=== PATIENT | male | born 1960 | race Caucasian/White ===

== ENCOUNTER 2024-05-21 17:07 | Emergency (ER) | payer BC, SELFPAY ==
[2024-05-21 17:11] VITALS: BP 181/83
--- NOTE | 2024-05-21 23:06 | ED.GENMED ---
History of Present Illness
General
Chief Complaint: Musculo-Skeletal Complaint
Time Seen by Provider: 05/21/24 20:49
History of Present Illness
History of Present Illness:
54-year-old male presents to the emergency department for evaluation of a crush injury to the right distal index finger, crushed in a car door. Went to urgent care where a x-ray revealed a fracture and he was referred to the emergency department.
Past History
Past History
ED Past Medical History: HTN and Hypercholesterolemia
ED Past Surgical History: None
Social History
Tobacco: Non-smoker
Alcohol: Occasional
Drug: None
Personal:
Living: with family
Employment: Employed
Family History
Family History: Other
Review of Systems
Review of Systems
Allergies reviewed?: Yes
All Other Systems: ROS reviewed and negative except as documented in HPI and ROS
Phy Exam
Physical Exam
Physical Exam:
GEN: Well appearing, NAD, WDWN
HEENT: Oral mucosa moist, no scleral icterus
Cardiac: Regular rate
Lung: No respiratory distress, no tachypnea
MSK: No gross deformity or injuries. Moderate swelling of the right distal finger with a 2 cm transverse laceration to the volar finger pad, minor subungual hematoma noted
Skin: Good color, no pallor or jaundice, no rashes
Neuro: AO x3, moves all extremities freely
Psych: Calm, cooperative
Course
Orders/Labs/Results
Orders:
Orders
05/21/24 23:08
Cephalexin Monohydrate [Keflex] 500 mg PO NOW STA
Vital Signs
Initial and Last Documented VS:
Initial Vital Signs
Temp Pulse Resp BP Pulse Ox
97.9 F 54 20 181/83 99
05/21/24 17:11 05/21/24 17:11 05/21/24 17:11 05/21/24 17:11 05/21/24 17:11
Last Documented Vital Signs
Temp Pulse Resp BP Pulse Ox
97.9 F 60 18 170/80 99
05/21/24 17:11 05/22/24 00:04 05/22/24 00:04 05/22/24 00:04 05/22/24 00:04
Procedures
Laceration Closure
Right Second Finger:
Status of Wound: clean
Size of Wound in cm: 2
Description of Wound Edges: sharp
Preparation: cleaned with soap & water
Anesthesia: 1% Lidocaine
Type of Closure: single layer closure
Skin Closure Material: 5-0 nylon
Number of sutures: 6
MDM/Problems Addressed
MDM/Problems Addressed:
Volar laceration closed with external sutures, given his open fracture we will treat with empiric antibiotics, tetanus previously up-to-date
*Critical Care Note
Total Time (30-74mins, 75-104mins- exclusive of procedures): Not Applicable
ED Attending Note
-
Portions of this chart may have been created with voice recognition software.� Occasional wrong word or��sound alike� substitutions may have occurred due to the inherent limitations of voice recognition software.
Discharge Plan
Departure
Patient Disposition: Home (Routine Discharge)
Date of Disposition: 05/21/24
Time of Disposition: 23:09
Patient with high blood pressure during this ER visit?: No
Discharge Problem:
Open fracture of distal phalanx of right index finger
Prescriptions:
New
cephalexin 500 mg capsule
500 mg PO Q8H 5 Days Qty: 15 0RF
No Action
simvastatin 20 MG tablet
20 mg PO
Atenolol
hydrochlorothiazide 12.5 MG capsule
12.5 mg PO
omeprazole magnesium [Prilosec OTC] 20 MG tablet,delayed release (DR/EC)
20 mg PO DAILY
Referrals:
UNKNOWN - PT NOT,INTERVIEWE [Family Provider] -
Activity Restrictions/Additional Instructions:
See your primary doctor in 1 week for suture removal
Take the antibiotics as prescribed
Return to the ER if you develop severe redness or pain of the finger
Interventions
Interventions:
*Risk Screen - Suicide Last Done: 05/21/24 17:11
*General Assessment Last Done: 05/21/24 17:11
*Neglect/Abuse Screening Last Done: 05/21/24 17:11
*ED COVID-19 Vaccine History Last Done: 05/21/24 19:11
*Nursing Disposition Last Done: 05/22/24 00:04
ED-Musculoskeletal Assessment Last Done: 05/21/24 19:11
Discharge Date and Time
Discharge Date/Time: 05/22/24 00:06
Print Language: BULGARIAN
[2024-05-21] MEDS: KEFLEX 500 MG PO (23:38)
[2024-05-22 00:04] VITALS: BP 170/80
== END 2024-05-22 00:06 | disposition home or self-care (01) ==
LOC: EMR 17:07
PROVIDERS: EMERGENCY PHYSICIAN Emergency Medicine
DX: S62.630B Displaced fracture of distal phalanx of right index finger, initial encounter for open fracture (principal); W23.0XXA Caught, crushed, jammed, or pinched between moving objects, initial encounter; I10 Essential (primary) hypertension; E78.00 Pure hypercholesterolemia, unspecified
CPT/HCPCS: 12001; 99282